=== PATIENT | male | born 1945 | race Caucasian/White ===

== ENCOUNTER → 2017-03-23 | Outpatient (CLI) | payer MEDICARE, OTHER ==
--- NOTE | 2017-03-23 12:01 | Diagnostic Imaging Report ---
EXAMINATION: Cervical spine at 1036 hours. INDICATION: Neck pain. TECHNIQUE: AP, lateral, odontoid, and both oblique views were obtained. COMPARISON: There are no prior studies available for comparison. FINDINGS: The lateral view shows slight anterior translation of C4 with respect to C5 and of C6 with respect to C7. There is also narrowing of the disc spaces at C5-6 and C6-7. There is mild bony foraminal encroachment bilaterally at these two levels as well. The other intervertebral spaces are fairly well-maintained. There is no fracture or acute bony abnormality evident. There is no sign of retropharyngeal edema. The lung apices are clear. IMPRESSION: 1. There is no evidence for an acute bony abnormality. 2. 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 If there is clinical concern regarding spinal stenosis or nerve root encroachment at these two levels, then cervical myelography followed by CT would be recommended for additional study. The patient does have a defibrillator device in place and this would preclude further evaluation by MRI. Dictated by: Dictated on workstation # [id number]
--- NOTE | 2017-03-23 12:03 | Diagnostic Imaging Report ---
Lumbar spine at 10:45 AM. INDICATION: Back pain. AP, lateral, and spot lateral views were obtained. There are no prior studies available for comparison. The lateral view shows that there is slight retrolisthesis of L3 with respect to L4. There is also moderate narrowing of the disc space at this level. The other intervertebral spaces show only mild narrowing of the disc spaces. There are small osteophytes along the ventral aspects of L1, L2, and L3. There is no fracture or acute bony abnormality evident. There is no sign of a paraspinal mass. There is mild symmetrical sclerosis of the sacroiliac joints. IMPRESSION: 1. There is no evidence for an acute bony abnormality. 2. There is moderate degenerative disc and bony disease at L3-L4. 3. If there is clinical concern regarding spinal stenosis or nerve root encroachment, then lumbar myelography followed by CT would be recommended. The patient does have a defibrillator device in place, and this would preclude further evaluation of the lumbar spine by MRI. Dictated by: Dictated on workstation # [id number]
== END ==
LOC: RAD 10:10
PROVIDERS: ATTEND Chiropractor
DX: M50.322 Other cervical disc degeneration at C5-C6 level (principal); M51.36 Other intervertebral disc degeneration, lumbar region
CPT/HCPCS: 72050; 72100

== ENCOUNTER 2022-01-12 08:47 | Outpatient (CLI) | payer MEDICARE ==
[~2022-01-12] VITALS: Ht 175.2 cm; Wt 77.2 kg
[2022-01-15] MEDS ORDERED: SPIR50TA PO (14:24)
[2022-01-15] MEDS ORDERED: ATOR40TA70 PO (14:24)
[2022-01-15] MEDS ORDERED: CRV25T PO (14:24)
[2022-01-15] MEDS ORDERED: WARF3TAB7 PO (14:24)
== END 2022-01-15 14:27 | disposition home or self-care (01) ==
LOC: PREOP 08:47
PROVIDERS: ATTEND Specialist
DX: Z01.818 Encounter for other preprocedural examination (principal)

== ENCOUNTER 2022-01-22 09:38 | Day surgery (SDC) | payer MEDICARE ==
[~2022-01-22] VITALS: Ht 175.2 cm; Wt 77.2 kg
[~2022-01-22 09:38] MED LIST: ATOR40TA70 PO; CRV25T PO; SPIR50TA PO; WARF3TAB7 PO
[2022-01-22] MEDS: TETRACAINE 0.5% OPHTH SOLN 4 ML BTL (SINGLE DOSE ONLY) OU PRN ×3 (10:14→10:30)
[2022-01-22] MEDS ORDERED: MOXIFLOXACIN OPHTH SOLN 5 MG/ML 0.3 ML SYRINGE OP ONE (10:15)
[2022-01-22] MEDS ORDERED: LIDOCAINE PF 1% 2 ML VIAL IR PRN (10:15)
[2022-01-22] MEDS ORDERED: POVIDONE (BETADINE) OPHTH SOLN 5% 30 ML OP ONE (10:15)
[2022-01-22] MEDS ORDERED: TIMOLOL MALEATE 0.5% 5 ML (TIMOPTIC) BTL OU PRN (10:15)
[2022-01-22] MEDS: PHENYLEPHRINE 10% OPHTH (NEO-SYN) 5 ML BTL OU SCH ×3 (10:20→10:30)
[2022-01-22] MEDS: TROPICAMIDE 1% OPH SOLN (MYDRIACYL) 15 ML BTL OP SCH ×3 (10:26→10:49)
[2022-01-22 10:32] VITALS: BP 130/84
[2022-01-22] MEDS ORDERED: MIDAZOLAM 2 MG/2 ML (VERSED) VIAL ONE (10:34)
--- NOTE | 2022-01-22 10:48 | Ophthalmologist Pre-Op Note ---
Pre-Operative Progress Note H&P Reviewed The H&P was reviewed, patient examined and no changes noted. Date H&P Reviewed: Jan 22, 2022 Time H&P Reviewed: 10:48 Pre-Op Dx Cataract, Right Eye ASCENCION MCGILL MD Jan 22, 2022 10:48
--- NOTE | 2022-01-22 11:16 | Ophthalmology Operative Report ---
Cataract removal/placement IOL PREOPERATIVE DIAGNOSIS: Cataract Right Eye POSTOPERATIVE DIAGNOSIS: Cataract Right Eye PROCEDURE: Cataract removal and placement of posterior chamber implant, right eye SURGEON: Ortiz Mcgill ANESTHESIA: Topical with sedation COMPLICATIONS: None ESTIMATED BLOOD LOSS: Minimal DESCRIPTION OF PROCEDURE: After proper informed consent was obtained, the patient, a 76 male, was taken to the Operating Room and the right eye was anesthetized with tetracaine. The right eye was then prepped and draped in the usual manner. A wire lid speculum was placed. A paracentesis was made at the left hand position. Preservative free lidocaine was injected into the anterior chamber followed by viscoelastic. A clear corneal incision was made in the temporal position. A capsulorrhexis was preformed and the central nuclear and cortical material were removed. The posterior capsule was polished and Alejandro AU00T0 16.0 IOL was placed into the capsular bag. The residual viscoelastic was aspirated and balanced saline solution was injected into the anterior chamber. Moxifloxacin was injected into the anterior chamber. The wound was checked and found to be water tight. The patient tolerated the procedure well without complications. ORTIZ MCGILL MD Jan 22, 2022 11:16
[2022-01-22 11:24] VITALS: BP 111/87
--- NOTE | 2022-01-22 12:41 | Anesthesia-General Post-Op ---
MAC Patient Condition Mental Status/LOC: Same as Preop Cardiovascular: Satisfactory Nausea/Vomiting: Absent Respiratory: Satisfactory Pain: Controlled Complications: Absent Post Op Complications Complications None Follow Up Care/Instructions Patient Instructions None needed. Anesthesiology Discharge Order Discharge Order Patient is doing well, no complaints, stable vital signs, no apparent adverse anesthesia problems. No complications reported per nursing. SHELDON HAMILTON CRNA Jan 22, 2022 12:41
[2022-01-22] MEDS ORDERED: acetaZOLAMIDE ER 500 MG CAP (DIAMOX SEQUELS) PO ONE (14:30)
== END 2022-01-22 11:28 | disposition home or self-care (01) ==
LOC: SDC 09:38
PROVIDERS: ATTEND Specialist
DX: H25.9 Unspecified age-related cataract (principal)
CPT/HCPCS: 66984; V2632

== ENCOUNTER 2022-02-02 06:12 | Outpatient (CLI) | payer MEDICARE | END 2022-02-02 14:03 | disposition home or self-care (01) | LOC: PREOP 06:12 | PROVIDERS: ATTEND Specialist | DX: Z01.818 Encounter for other preprocedural examination (principal) ==

== ENCOUNTER 2022-02-05 11:15 | Day surgery (SDC) | payer MEDICARE ==
[~2022-02-05] VITALS: Ht 175.2 cm; Wt 77.2 kg
[2022-02-05] MEDS: TETRACAINE 0.5% OPHTH SOLN 4 ML BTL (SINGLE DOSE ONLY) OU PRN ×4 (11:24→11:40)
[2022-02-05] MEDS ORDERED: POVIDONE (BETADINE) OPHTH SOLN 5% 30 ML OP ONE ×2 (11:30)
[2022-02-05] MEDS ORDERED: PHENYLEPHRINE 10% OPHTH (NEO-SYN) 5 ML BTL OU SCH (11:30)
[2022-02-05] MEDS ORDERED: MOXIFLOXACIN OPHTH SOLN 5 MG/ML 0.3 ML SYRINGE OP ONE ×2 (11:30)
[2022-02-05] MEDS: TROPICAMIDE 1% OPH SOLN (MYDRIACYL) 15 ML BTL OP SCH ×3 (11:30→11:41)
[2022-02-05] MEDS ORDERED: TIMOLOL MALEATE 0.5% 5 ML (TIMOPTIC) BTL OU PRN ×2 (11:30)
[2022-02-05] MEDS: PHENYLEPHRINE 10% OPHTH (NEO-SYN) 5 ML BTL OU SCH ×3 (11:30→11:41)
[2022-02-05] MEDS ORDERED: TROPICAMIDE 1% OPH SOLN (MYDRIACYL) 15 ML BTL OP SCH (11:30)
[2022-02-05] MEDS ORDERED: TETRACAINE 0.5% OPHTH SOLN 4 ML BTL (SINGLE DOSE ONLY) OU PRN (11:30)
[2022-02-05 11:38] VITALS: BP 110/76
[2022-02-05] MEDS ORDERED: MIDAZOLAM 2 MG/2 ML (VERSED) VIAL ONE (12:17)
--- NOTE | 2022-02-05 12:21 | Ophthalmologist Pre-Op Note ---
Pre-Operative Progress Note H&P Reviewed The H&P was reviewed, patient examined and no changes noted. Date H&P Reviewed: Feb 05, 2022 Time H&P Reviewed: 12:21 Pre-Op Dx Cataract, Left Eye ASCENCION MCGILL MD Feb 05, 2022 12:21
--- NOTE | 2022-02-05 12:42 | Ophthalmology Operative Report ---
Cataract removal/placement IOL PREOPERATIVE DIAGNOSIS: Cataract Left Eye POSTOPERATIVE DIAGNOSIS: Cataract Left Eye PROCEDURE: Cataract removal and placement of posterior chamber implant, left eye SURGEON: Ortiz Mcgill ANESTHESIA: Topical with sedation COMPLICATIONS: None ESTIMATED BLOOD LOSS: Minimal DESCRIPTION OF PROCEDURE: After proper informed consent was obtained, the patient, a 76 male, was taken to the Operating Room and the left eye was anesthetized with tetracaine. The left eye was then prepped and draped in the usual manner. A wire lid speculum was placed. A paracentesis was made at the left hand position. Preservative free lidocaine was injected into the anterior chamber followed by viscoelastic. A clear corneal incision was made in the temporal position. A capsulorrhexis was preformed and the central nuclear and cortical material were removed. The posterior capsule was polished and an Alejandro 21.0 AU00T0 was placed into the capsular bag. The residual viscoelastic was aspirated and balanced saline solution was injected into the anterior chamber. Moxifloxacin was injected into the anterior chamber. The wound was checked and found to be water tight. The patient tolerated the procedure well without complications. ORTIZ MCGILL MD Feb 05, 2022 12:42
[2022-02-05 12:45] VITALS: BP 97/76
--- NOTE | 2022-02-05 13:12 | Anesthesia-General Post-Op ---
MAC Patient Condition Mental Status/LOC: Same as Preop Cardiovascular: Satisfactory Nausea/Vomiting: Absent Respiratory: Satisfactory Pain: Controlled Complications: Absent Post Op Complications Complications None Follow Up Care/Instructions Patient Instructions None needed. Anesthesiology Discharge Order Discharge Order Patient is doing well, no complaints, stable vital signs, no apparent adverse anesthesia problems. No complications reported per nursing. ASIM DAMICO CRNA Feb 05, 2022 13:12
[2022-02-05] MEDS ORDERED: acetaZOLAMIDE ER 500 MG CAP (DIAMOX SEQUELS) PO ONE ×2 (13:15)
== END 2022-02-05 12:46 | disposition home or self-care (01) ==
LOC: SDC 11:15
PROVIDERS: ATTEND Specialist
DX: H25.9 Unspecified age-related cataract (principal)
CPT/HCPCS: 66984; V2632